=== PATIENT | female | born 1985 | race Caucasian/White ===

== ENCOUNTER 2016-08-27 18:05 | Emergency (ER) | payer OTHER ==
[2016-08-27] MEDS ORDERED: KETOROLAC TROMETHAMINE INJ/PF 30 MG/1 ML SDV IV ONE (19:01)
[2016-08-27] MEDS ORDERED: NORMAL SALINE 1000 ML 1,000 ML IV ONE (19:01)
[2016-08-27] MEDS ORDERED: CEFTRIAXONE 1 GM/D5W RTU 50 ML IV ONE (19:01)
[2016-08-27] MEDS ORDERED: ONDANSETRON HCL INJ/PF 4 MG/2 ML SDV IV ONE (19:01)
--- NOTE | 2016-08-27 19:07 | ER Document Report ---
ED General - General Chief Complaint: Flank Pain Stated Complaint: LEFT FLANK PAIN Time Seen by Provider: 08/27/16 18:53 Mode of Arrival: Ambulatory Information source: Patient Notes: 31-year-old female presents with complaints of left flank pain. Patient denies chills denies any fevers. Patient notes she was seen prior in [place] diagnosed with Ryan was started on Cipro but feels symptoms have not improved at all. TRAVEL OUTSIDE OF THE [place]. IN LAST 30 DAYS: No - HPI Onset: Last week Onset/Duration: Persistent Quality of pain: Achy Severity: Mild Pain Level: 2 Associated symptoms: Nausea, Vomiting Exacerbated by: Denies Relieved by: Denies Similar symptoms previously: Yes Recently seen / treated by doctor: Yes - Related Data Allergies/Adverse Reactions: Sulfa (Sulfonamide Antibiotics) Allergy (Mild, Verified 11/12/14 13:35) Hives Past Medical History - Social History Smoking Status: Never Smoker Cigarette use (# per day): No Chew tobacco use (# tins/day): No Smoking Education Provided: No Family History: Reviewed & Not Pertinent Patient has suicidal ideation: No Patient has homicidal ideation: No Renal/ Medical History: Reports: Hx Kidney Stones. Denies: Hx Peritoneal Dialysis Past Surgical History: Reports: Hx Tonsillectomy - Immunizations Immunizations up to date: Yes Hx Diphtheria, Pertussis, Tetanus Vaccination: No Review of Systems - Review of Systems Notes: REVIEW OF SYSTEMS: CONSTITUTIONAL : Admits to chills EENT: Denies eye, ear, throat, or mouth pain or symptoms. Denies nasal or sinus congestion or discharge. Denies throat, tongue, or mouth swelling or difficulty swallowing. CARDIOVASCULAR: Denies chest pain. Denies palpitations or racing or irregular heart beat. Denies ankle edema. RESPIRATORY: Denies cough, cold, or chest congestion. Denies shortness of breath, difficulty breathing, or wheezing. GASTROINTESTINAL: Left flank pain GENITOURINARY: admits to burning urination MUSCULOSKELETAL: Denies back or neck pain or stiffness. Denies joint pain or swelling. SKIN: Denies rash, lesions or sores. HEMATOLOGIC : Denies easy bruising or bleeding. LYMPHATIC: Denies swollen, enlarged glands. NEUROLOGICAL: Denies confusion or altered mental status. Denies passing out or loss of consciousness. Denies dizziness or lightheadedness. Denies headache. Denies weakness or paralysis or loss of use of either side. Denies problems with gait or speech. Denies sensory loss, numbness, or tingling. Denies seizures. PSYCHIATRIC: Denies anxiety or stress. Denies depression, suicidal ideation, or homicidal ideation. ALL OTHER SYSTEMS REVIEWED AND NEGATIVE. PHYSICAL EXAMINATION: GENERAL: pt in mild distress HEAD: Atraumatic, normocephalic. EYES: Pupils equal round and reactive to light, extraocular movements intact, conjunctiva are normal. ENT: Nares patent, oropharynx clear without exudates. Moist mucous membranes. NECK: Normal range of motion, supple without lymphadenopathy LUNGS: Breath sounds clear to auscultation bilaterally and equal. No wheezes rales or rhonchi. HEART: Regular rate and rhythm without murmurs ABDOMEN: left cva tenderness Female : deferred Musculoskeletal: Normal range of motion, no pitting or edema. No cyanosis. NEUROLOGICAL: Cranial nerves grossly intact. Normal speech, normal gait. Normal sensory, motor exams PSYCH: Normal mood, normal affect. SKIN: Warm, Dry, normal turgor, no rashes or lesions noted. Dictation was performed using [employer] voice recognition software Physical Exam - Vital signs Vitals: Temp Pulse Resp BP Pulse Ox 98.2 F 103 H 22 H 114/62 99 08/27/16 18:13 08/27/16 18:13 08/27/16 18:13 08/27/16 18:13 08/27/16 18:13 Course - Re-evaluation Re-evalutation: 08/27/16 19:06 lab work pending, pt had a ct which was negative, pt notes she had as many wbc as rbc in her urine prior i am attempting to contact her hospital in [place] to see if they cultured the results 08/27/16 20:57 Ct is consistnat with left punctate stone, no other abnormalites noted. pt explained these results. otherwise labs are normal pt is s table for dc After performing a Medical Screening Examination, I estimate there is LOW risk for ACUTE APPENDICITIS, BOWEL OBSTRUCTION, ACUTE CHOLECYSTITIS, PERFORATED DIVERTICULITIS, INCARCERATED HERNIA, PANCREATITIS, PELVIC INFLAMMATORY DISEASE, PERFORATED ULCER, ECTOPIC , or TUBO-OVARIAN ABSCESS, thus I consider the discharge disposition reasonable. Also, there is no evidence or peritonitis , sepsis, or toxicity. I have reevaluated this patient multiple times and no significant life threatening changes are noted. The patient and I have discussed the diagnosis and risks, and we agree with discharging home with close follow-up with the understanding that symptoms and presentations can change. We also discussed returning to the Emergency Department immediately if new or worsening symptoms occur. We have discussed the symptoms which are most concerning (e.g., bloody stool, fever, changing or worsening pain, vomiting) that necessitate immediate return. - Vital Signs Vital signs: Temp Pulse Resp BP Pulse Ox 98.2 F 103 H 22 H 114/62 99 08/27/16 18:13 08/27/16 18:13 08/27/16 18:13 08/27/16 18:13 08/27/16 18:13 - Laboratory Result Diagrams: 08/27/16 19:19 08/27/16 19:19 Laboratory results interpreted by me: 08/27/16 19:19 AST 37 H ALT 70 H - Diagnostic Test Radiology reviewed: Image reviewed, Reports reviewed - report Given the patient left punctate Discharge - Discharge Clinical Impression: Calculus of left kidney, Flank pain Condition: Stable Disposition: HOME, SELF-CARE Instructions: Kidney Stone ([facility]) Prescriptions: Hydrocodone/Acetaminophen [Andrews 5-325 mg Tablet] 1 tab PO Q6 #10 tablet Referrals: NICKIE BRICE MD [ACTIVE STAFF] - Follow up tomorrow
[2016-08-27 19:34] LABS: ABSOLUTE BASOPHILS # (AUTO) 0.1 10^3/uL (0.0-0.2); ABSOLUTE EOSINOPHILS # (AUTO) 0.2 10^3/uL (0.0-0.6); ABSOLUTE LYMPHOCYTES (AUTO) 2.5 10^3/uL (0.5-4.7); ABSOLUTE MONOCYTES (AUTO) 0.8 10^3/uL (0.1-1.4); ABSOLUTE NEUT (AUTO) 4.2 10^3/uL (1.7-8.2); BASOPHILS % (AUTO) 0.9 % (0-2); EOSINOPHILS % (AUTO) 2.5 % (0-6); HEMOGLOBIN 13.9 g/dL (12.0-15.5); HGB HCT DIFFERENCE -0.3; LYMPHOCYTES % (AUTO) 32.2 % (13-45); MEAN CORPUSCULAR HEMOGLOBIN 30.5 pg (27.0-33.4); MEAN CORPUSCULAR HGB CONC 33.1 g/dL (32.0-36.0); MEAN CORPUSCULAR VOLUME 92 fl (80-97); MONOCYTES % (AUTO) 10.5 % (3-13); RED BLOOD COUNT 4.56 10^6/uL (3.72-5.28); RED CELL DISTRIBUTION WIDTH 12.3 % (11.5-14.0); SEGMENTED NEUTROPHILS % (AUTO) 53.9 % (42-78); WHITE BLOOD COUNT 7.8 10^3/uL (4.0-10.5)
[2016-08-27 19:43] LABS: APPEARANCE,URINE CLEAR; BILIRUBIN,URINE NEGATIVE (NEGATIVE); GLUCOSE, URINE NEGATIVE (NEGATIVE); KETONES,URINE NEGATIVE (NEGATIVE); LEUKOCYTE ESTERASE,URINE NEGATIVE (NEGATIVE); NITRITE,URINE NEGATIVE (NEGATIVE); PROTEIN,URINE NEGATIVE (NEGATIVE); URINE SPECIFIC GRAVITY 1.004; UROBILINOGEN,URINE NEGATIVE mg/dL (<2.0)
[2016-08-27 19:51] LABS: ALANINE AMINOTRANSFERASE 70 U/L (9-52); ALBUMIN 4.5 g/dL (3.5-5.0); ALKALINE PHOSPHATASE 52 U/L (38-126); ANION GAP 12 (5-19); ASPARTATE AMINO TRANSFERASE 37 U/L (14-36); BILIRUBIN,DIRECT 0.3 mg/dL (0.0-0.4); BILIRUBIN,TOTAL 0.5 mg/dL (0.2-1.3); BLOOD UREA NITROGEN 13 mg/dL (7-20); CARBON DIOXIDE 26 mmol/L (22-30); CHLORIDE 103 mmol/L (98-107); CREATININE RESULT 0.57 mg/dL (0.52-1.25); GLUCOSE 76 mg/dL (75-110); POTASSIUM 4.6 mmol/L (3.6-5.0); SODIUM 140.5 mmol/L (137-145); TOTAL PROTEIN 7.4 g/dL (6.3-8.2)
--- NOTE | 2016-08-27 20:33 | RADIOLOGY REPORT (SQ) ---
EXAM DESCRIPTION: CT LTD RENAL STONE PROTOCOL ON COMPLETED DATE/TIME: 08/27/2016 8:17 pm REASON FOR STUDY: left flank pain COMPARISON: None. TECHNIQUE: CT scan of the abdomen and pelvis performed without intravenous or oral contrast. Images reviewed with lung, soft tissue, and bone windows. Reconstructed coronal and sagittal MPR images revi ewed. All images stored on PACS. All CT scanners at this facility use dose modulation, iterative reconstruction, and/or weight based d osing when appropriate to reduce radiation dose to as low as reasonably achievable (ALARA). [facility]: Dose Right [facility]: CareDose [facility]: Dose Right [facility]: Teradose 4D [facility]: Smart Missionly RADIATION DOSE: Up-to-date CT equipment and radiation dose reduction techniques were employed. CTDIv ol: 5.5 mGy. DLP: 299 mGy-cm.mGy. LIMITATIONS: None. FINDINGS: LOWER CHEST: No significant findings. No nodules or infiltrates. NON-CONTRASTED LIVER, SPLEEN, ADRENALS: Evaluation limited by lack of IV contrast. No identified sign ificant masses. PANCREAS: No masses. No peripancreatic inflammatory changes. GALLBLADDER: No identified stones by CT criteria. No inflammatory changes to suggest cholecystitis. RIGHT KIDNEY AND URETER: No suspicious masses. Assessment limited by lack of IV contrast. No signif icant calcifications. No hydronephrosis or hydroureter. LEFT KIDNEY AND URETER: No suspicious masses. Assessment limited by lack of IV contrast. Punctate n onobstructing calculus identified in the upper pole. There is a rounded calcification is seen in wit hin the pelvis and appears to represent a phlebolith. No hydronephrosis or hydroureter. AORTA AND RETROPERITONEUM: No aneurysm. No retroperitoneal masses or adenopathy. BOWEL AND PERITONEAL CAVITY: No obvious masses or inflammatory changes. No free fluid. APPENDIX: Normal. PELVIS, BLADDER, AND ABDOMINAL WALL:No abnormal masses. No free fluid. Bladder normal. Pelvic phlebo liths noted bilaterally. BONES: No significant findings. OTHER: No other significant finding. IMPRESSION: Punctate nonobstructing calculus identified in the upper pole the left kidney. No signi ficant hydronephrosis. No other significant abnormality identified on this noncontrast study of the abdomen pelvis. TECHNICAL DOCUMENTATION: JOB ID: [id number] Quality ID # [id number]: Final reports with documentation of one or more dose reduction techniques (e.g., Au tomated exposure control, adjustment of the mA and/or kV according to patient size, use of iterative reconstruction technique) 2010 [employer]- All Rights Reserved
[2016-08-27 21:21] VITALS: BP 103/72
== END 2016-08-27 21:10 | disposition home or self-care (01) ==
LOC: ER 18:05
DX: N20.0 Calculus of kidney (principal); R10.9 Unspecified abdominal pain
CPT/HCPCS: 99284; 96375; 96365; 36415; 87040; 87086; 85025; 81025; 87088; 80053; 81001; 76380; J1885; J2405; J7030; J0696

== ENCOUNTER 2016-09-16 11:16 | Emergency (ER) | payer OTHER ==
[2016-09-16] MEDS ORDERED: LORAZEPAM 1 MG TABLET PO ONE (11:36)
[2016-09-16] MEDS ORDERED: NORMAL SALINE 1000 ML 1,000 ML IV PRN (11:36)
--- NOTE | 2016-09-16 11:39 | ER Document Report ---
ED Medical Screen (RME) - General Chief Complaint: Anxiety Stated Complaint: FAST HEART BEAT Time Seen by Provider: 09/16/16 11:30 Mode of Arrival: Ambulatory Information source: Patient TRAVEL OUTSIDE OF THE [place] IN LAST 30 DAYS: No - HPI Patient complains to provider of: Palpitations Onset: This morning Onset/Duration: Sudden Quality of pain: No pain Associated Symptoms: Shortness of breath Exacerbated by: Denies Relieved by: Denies Notes: 09/16/16 11:38 Patient is a 31-year-old female who presents to the emergency room complaining of palpitations, with sensation of her heart racing, symptoms started earlier this morning, she has a history of anxiety or panic attacks previously but is usually able to calm herself down with breathing exercises and melatonin which did not work today, she reports she is anxious about starting school, is slightly tearful in triage area, however she does report a recent road trip to [place] approximately 2 weeks ago, denies any calf pain, denies any chest pain, does not take oral control pills - Related Data Allergies/Adverse Reactions: Sulfa (Sulfonamide Antibiotics) Allergy (Mild, Verified 09/16/16 11:26) Hives Past Medical History Renal/ Medical History: Reports: Hx Kidney Stones. Denies: Hx Peritoneal Dialysis Past Surgical History: Reports: Hx Tonsillectomy - Immunizations Immunizations up to date: Yes Hx Diphtheria, Pertussis, Tetanus Vaccination: No Physical Exam - Vital signs Vitals: Temp Pulse Resp BP Pulse Ox 97.7 F 111 H 18 116/85 100 09/16/16 11:25 09/16/16 11:25 09/16/16 11:25 09/16/16 11:25 09/16/16 11:25 Course - Vital Signs Vital signs: Temp Pulse Resp BP Pulse Ox 97.7 F 111 H 18 116/85 100 09/16/16 11:25 09/16/16 11:25 09/16/16 11:25 09/16/16 11:25 09/16/16 11:25 Doctor's Discharge - Discharge Instructions: Anxiety ([facility])
[2016-09-16 12:13] LABS: ABSOLUTE BASOPHILS # (AUTO) 0.1 10^3/uL (0.0-0.2); ABSOLUTE EOSINOPHILS # (AUTO) 0.1 10^3/uL (0.0-0.6); ABSOLUTE LYMPHOCYTES (AUTO) 1.8 10^3/uL (0.5-4.7); ABSOLUTE MONOCYTES (AUTO) 0.6 10^3/uL (0.1-1.4); ABSOLUTE NEUT (AUTO) 5.4 10^3/uL (1.7-8.2); BASOPHILS % (AUTO) 0.9 % (0-2); EOSINOPHILS % (AUTO) 1.6 % (0-6); HEMATOCRIT 39.5 % (36.0-47.0); HEMOGLOBIN 13.4 g/dL (12.0-15.5); HGB HCT DIFFERENCE 0.7; LYMPHOCYTES % (AUTO) 22.5 % (13-45); MEAN CORPUSCULAR HEMOGLOBIN 30.9 pg (27.0-33.4); MEAN CORPUSCULAR HGB CONC 33.9 g/dL (32.0-36.0); MEAN CORPUSCULAR VOLUME 91 fl (80-97); MONOCYTES % (AUTO) 7.6 % (3-13); RED BLOOD COUNT 4.34 10^6/uL (3.72-5.28); RED CELL DISTRIBUTION WIDTH 12.7 % (11.5-14.0); SEGMENTED NEUTROPHILS % (AUTO) 67.4 % (42-78)
--- NOTE | 2016-09-16 12:25 | RADIOLOGY REPORT (SQ) ---
EXAM DESCRIPTION: CHEST PA/LAT COMPLETED DATE/TIME: 09/16/2016 12:04 pm REASON FOR STUDY: tachycardia COMPARISON: None. EXAM PARAMETERS: NUMBER OF VIEWS: two views TECHNIQUE: Digital Frontal and Lateral radiographic views of the chest acquired. RADIATION DOSE: NA LIMITATIONS: none FINDINGS: LUNGS AND PLEURA: No opacities, masses or pneumothorax. No pleural effusion. MEDIASTINUM AND HILAR STRUCTURES: No masses or contour abnormalities. HEART AND VASCULAR STRUCTURES: Heart normal size. No evidence for failure. BONES: No acute findings. HARDWARE: None in the chest. OTHER: No other significant finding. IMPRESSION: NO SIGNIFICANT RADIOGRAPHIC FINDING IN THE CHEST. TECHNICAL DOCUMENTATION: JOB ID: [id number] [employer]- All Rights Reserved
[2016-09-16 12:35] LABS: ALANINE AMINOTRANSFERASE 57 U/L (9-52); ALBUMIN 4.5 g/dL (3.5-5.0); ALKALINE PHOSPHATASE 46 U/L (38-126); ANION GAP 11 (5-19); ASPARTATE AMINO TRANSFERASE 29 U/L (14-36); BILIRUBIN,DIRECT 0.2 mg/dL (0.0-0.4); BILIRUBIN,TOTAL 0.4 mg/dL (0.2-1.3); BLOOD UREA NITROGEN 8 mg/dL (7-20); CALCIUM 9.8 mg/dL (8.4-10.2); CARBON DIOXIDE 25 mmol/L (22-30); CHLORIDE 105 mmol/L (98-107); CREATINE KINASE 48 U/L (30-135); CREATININE RESULT 0.54 mg/dL (0.52-1.25); GLUCOSE 86 mg/dL (75-110); POTASSIUM 4.6 mmol/L (3.6-5.0); SODIUM 141.3 mmol/L (137-145); TOTAL PROTEIN 7.2 g/dL (6.3-8.2)
[2016-09-16 12:47] LABS: CREATINE KINASE MB 0.74 ng/mL (<4.55); TROPONIN I < 0.012 ng/mL
--- NOTE | 2016-09-16 15:31 | ER Document Report ---
ED General - General Chief Complaint: Anxiety Stated Complaint: FAST HEART BEAT Time Seen by Provider: 09/16/16 11:30 Mode of Arrival: Ambulatory Information source: Patient Notes: Is a 31-year-old female with a history of anxiety that presents to the emergency room with palpitations, heart racing, feeling anxious. TRAVEL OUTSIDE OF THE [place] IN LAST 30 DAYS: No - HPI Onset: Last week Onset/Duration: Gradual Quality of pain: No pain Severity: None Pain Level: Denies Associated symptoms: Other - Is palpitations. denies: Chest pain, Fever, Shortness of breath Exacerbated by: Denies Relieved by: Denies Similar symptoms previously: Yes Recently seen / treated by doctor: Yes - Related Data Allergies/Adverse Reactions: Sulfa (Sulfonamide Antibiotics) Allergy (Mild, Verified 09/16/16 11:26) Hives Past Medical History - General Information source: Patient - Social History Smoking Status: Never Smoker Cigarette use (# per day): No Chew tobacco use (# tins/day): No Frequency of alcohol use: None Drug Abuse: None Lives with: Family Family History: Reviewed & Not Pertinent Patient has suicidal ideation: No Patient has homicidal ideation: No - Past Medical History Cardiac Medical History: Reports: None Pulmonary Medical History: Reports: None EENT Medical History: Reports: None Neurological Medical History: Reports: None Endocrine Medical History: Reports: None Renal/ Medical History: Reports: Hx Kidney Stones. Denies: Hx Peritoneal Dialysis Malignancy Medical History: Reports: None GI Medical History: Reports: None Musculoskeltal Medical History: Reports None Skin Medical History: Reports None Psychiatric Medical History: Reports: Hx Anxiety Traumatic Medical History: Reports: None Infectious Medical History: Reports: None Past Surgical History: Reports: Hx Tonsillectomy - Immunizations Immunizations up to date: Yes Hx Diphtheria, Pertussis, Tetanus Vaccination: No Review of Systems - Review of Systems Constitutional: denies: Chills, Fever EENT: No symptoms reported Cardiovascular: Palpitations Respiratory: No symptoms reported Gastrointestinal: No symptoms reported Genitourinary: No symptoms reported Female Genitourinary: No symptoms reported Musculoskeletal: No symptoms reported Skin: No symptoms reported Hematologic/Lymphatic: No symptoms reported Neurological/Psychological: No symptoms reported Physical Exam - Vital signs Vitals: Temp Pulse Resp BP Pulse Ox 97.7 F 111 H 18 116/85 100 09/16/16 11:25 09/16/16 11:25 09/16/16 11:25 09/16/16 11:25 09/16/16 11:25 Notes: Physical exam: GENERAL: 31-year-old female, alert and oriented 3, no acute distress HEAD: Atraumatic, normocephalic. EYES: Pupils equal round and reactive to light, extraocular movements intact, sclera anicteric, conjunctiva are normal. ENT: TMs normal, nares patent, oropharynx clear without exudates. Moist mucous membranes. NECK: Normal range of motion, supple without lymphadenopathy or JVD. LUNGS: Breath sounds clear to auscultation bilaterally and equal. No wheezes rales or rhonchi. HEART: Regular rate and rhythm without murmurs, rubs or gallops. ABDOMEN: Soft, normoactive bowel sounds. No tenderness to palpation. No guarding, no rebound. No masses appreciated. EXTREMITIES: Normal range of motion, no pitting or edema. No clubbing or cyanosis. NEUROLOGICAL: Cranial nerves II through XII grossly intact. Normal speech, normal gait. PSYCH: Normal mood, normal affect. SKIN: Warm, Dry, normal turgor, no rashes or lesions noted. Course - Re-evaluation Re-evalutation: 09/16/16 19:30 Observed on the monitor for several hours. She did fine and states she is feeling better. And states she was feeling better. The d-dimer is negative and her TSH is good. The rest of her electrolytes is good. - Vital Signs Vital signs: Temp Pulse Resp BP Pulse Ox 97.8 F 111 H 19 109/90 H 100 09/16/16 15:48 09/16/16 11:25 09/16/16 15:48 09/16/16 15:48 09/16/16 15:57 - Laboratory Result Diagrams: 09/16/16 11:50 09/16/16 11:50 Laboratory results interpreted by me: 09/16/16 11:50 ALT 57 H - EKG Interpretation by Me Rate: Tachycardia Rhythm: NSR - EKG shows sinus tachycardia with a ventricular rate of 105, no acute ST-T wave changes Discharge - Discharge Clinical Impression: Anxiety Condition: Stable Disposition: HOME, SELF-CARE Instructions: Anxiety ([facility]) Additional Instructions: As we discussed, your labs look good today. I would like you to follow-up with your primary care doctor Recommendations: In the meantime, take Ativan only if necessary feeling anxious. Return to the emergency room for worsening anxiety, shortness of breath, palpitations or any concerns or getting worse. Prescriptions: Lorazepam [Ativan 1 mg Tablet] 1 tab PO TID #20 tablet
[2016-09-16 15:57] VITALS: BP 109/90
--- NOTE | 2016-09-17 03:38 | EKG REPORT ---
SEVERITY:- OTHERWISE NORMAL ECG - SINUS TACHYCARDIA : Confirmed by: Kimberly Song MD 17-Sep-2016 03:36:41
== END 2016-09-16 15:58 | disposition home or self-care (01) ==
LOC: ER 11:16
DX: F41.9 Anxiety disorder, unspecified (principal); R00.2 Palpitations; R00.0 Tachycardia, unspecified; Z88.2 Allergy status to sulfonamides
CPT/HCPCS: 93005; 99284; 96360; 36415; 82553; 82550; 84443; 85025; 80053; 84484; 85379; 71020; 93010; J7030

== ENCOUNTER 2017-01-22 09:43 | Emergency (ER) | payer OTHER ==
[2017-01-22] MEDS ORDERED: NORMAL SALINE 1000 ML 1,000 ML IV ONE (10:59)
--- NOTE | 2017-01-22 11:01 | ER Document Report ---
HPI - HPI Patient complains to provider of: Palpitations and anxiety Onset: This morning Onset/Duration: Sudden Quality of pain: No pain Pain Level: Denies Context: Patient states that she felt her heart racing around 630 today. Patient states that when her heart races it makes her anxious which worsens her heart racing. 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 Patient denies any suicidal or homicidal ideation. Patient denies any history of PE or DVT. Patient denies any chest pain. Patient states she has had episodes of palpitations and heart racing in the past and did wear a Holter monitor and had followed up with cardiology. Patient states she was only diagnosed with anxiety and panic attacks. Patient states that she does take diazepam and Prozac for her symptoms but ran out of her diazepam. Associated Symptoms: Other - Palpitations, anxiety. denies: Chest pain, Nonproductive cough, Productive cough Exacerbated by: Denies Relieved by: Denies Similar symptoms previously: Yes Recently seen / treated by doctor: No - ROS ROS below otherwise negative: Yes Systems Reviewed and Negative: Yes All other systems reviewed and negative - CONSTITUTIONAL Constitutional: DENIES: Fever Notes: Anxiety, palpitations - NEURO Neurology: DENIES: Headache, Weakness - CARDIOVASCULAR Cardiovascular: DENIES: Chest pain - RESPIRATORY Respiratory: DENIES: Coughing - GASTROINTESTINAL Gastrointestinal: DENIES: Nausea, Patient vomiting - MUSCULOSKELETAL Musculoskeletal: DENIES: Extremity pain - DERM Skin Color: Normal Skin Problems: None Past Medical History - General Information source: Patient - Social History Smoking Status: Never Smoker Frequency of alcohol use: None Drug Abuse: None Occupation: Tax preparation Lives with: Family Family History: Reviewed & Not Pertinent - Past Medical History Cardiac Medical History: Reports: Other - Palpitations Renal/ Medical History: Reports: Hx Kidney Stones. Denies: Hx Peritoneal Dialysis Psychiatric Medical History: Reports: Hx Anxiety Past Surgical History: Reports: Hx Tonsillectomy - Immunizations Immunizations up to date: Yes Hx Diphtheria, Pertussis, Tetanus Vaccination: No Vertical Provider Document - CONSTITUTIONAL Agree With Documented VS: Yes Exam Limitations: No Limitations General Appearance: WD/WN, No Apparent Distress - INFECTION CONTROL TRAVEL OUTSIDE OF THE [place] IN LAST 30 DAYS: No - HEENT HEENT: Atraumatic, Normal ENT Exam, Normocephalic - NECK Neck: Normal Inspection, Supple, Thyroid Normal. negative: Lymphadenopathy-Left , Lymphadenopathy-Right - RESPIRATORY Respiratory: Breath Sounds Normal, No Respiratory Distress, Chest Non-Tender O2 Sat by Pulse Oximetry: 100 - CARDIOVASCULAR Cardiovascular: Regular Rhythm, No Murmur, Tachycardia - GI/ABDOMEN Gastrointestinal: Abdomen Soft - BACK Back: Normal Inspection - MUSCULOSKELETAL/EXTREMETIES Musculoskeletal/Extremeties: MAEW, FROM, Non-Tender - NEURO Level of Consciousness: Awake, Alert, Appropriate Motor/Sensory: No Motor Deficit - DERM Integumentary: Warm, Dry, No Rash Course - Re-evaluation Re-evalutation: 01/22/17 Review of prescription profile demonstrates that patient received a 30 day supply of diazepam on 12/25/2016. Patient had been taking more than 1 tablet a day as was prescribed. Patient advised that she will need to seek a refill of this medication from her primary care provider. Patient took her last dose of diazepam last night. No concern for withdrawal at this time. Patient advised that she should only take the medication as it was written. Patient states she did not realize that it was only written for 1 time a day as she was verbally told to take it as needed. Tachycardia resolved. Patient visibly more calm. Patient denies any chest pain , dyspnea or feelings of palpitations. - Vital Signs Vital signs: Temp Pulse Resp BP Pulse Ox 98.0 F 136 H 18 123/70 100 01/22/17 10:03 01/22/17 10:03 01/22/17 10:03 01/22/17 10:03 01/22/17 10:03 - Laboratory Result Diagrams: 01/22/17 12:25 01/22/17 12:25 Laboratory results interpreted by me: 01/22/17 20:40 Labs- Entire Visit 01/22/17 01/22/17 01/22/17 11:35 11:35 12:25 WBC 8.7 RBC 4.50 Hgb 13.9 Hct 40.6 MCV 90 MCH 31.0 MCHC 34.3 RDW 13.2 Plt Count 223 Seg Neutrophils % 59.0 Lymphocytes % 31.1 Monocytes % 7.8 Eosinophils % 1.4 Basophils % 0.7 Absolute Neutrophils 5.1 Absolute Lymphocytes 2.7 Absolute Monocytes 0.7 Absolute Eosinophils 0.1 Absolute Basophils 0.1 D-Dimer Sodium Potassium Chloride Carbon Dioxide Anion Gap BUN Creatinine Est GFR ( Amer) Est GFR (Non-Af Amer) Glucose Calcium Creatine Kinase CK-MB (CK-2) Troponin I TSH Urine Color YELLOW Urine Appearance CLEAR Urine pH 8.0 Ur Specific Barton 1.017 Urine Protein NEGATIVE Urine Glucose (UA) NEGATIVE Urine Ketones NEGATIVE Urine Blood NEGATIVE Urine Nitrite NEGATIVE Urine Bilirubin NEGATIVE Urine Urobilinogen NEGATIVE Ur Leukocyte Esterase NEGATIVE Urine WBC 1-5 Ur Squamous Epith Cells MANY Urine Bacteria TRACE Urine Ascorbic Acid NEGATIVE Urine Opiates Screen NEGATIVE Urine Methadone Screen NEGATIVE Ur Barbiturates Screen NEGATIVE Ur Phencyclidine Scrn NEGATIVE Ur Amphetamines Screen NEGATIVE U Benzodiazepines Scrn UNCONFIRMED POSITIVE Urine Cocaine Screen NEGATIVE U Marijuana (THC) Screen NEGATIVE 01/22/17 01/22/17 01/22/17 12:25 12:25 12:25 WBC RBC Hgb Hct MCV MCH MCHC RDW Plt Count Seg Neutrophils % Lymphocytes % Monocytes % Eosinophils % Basophils % Absolute Neutrophils Absolute Lymphocytes Absolute Monocytes Absolute Eosinophils Absolute Basophils D-Dimer < 0.27 Sodium 141.8 Potassium 5.1 H Chloride 101 Carbon Dioxide 27 Anion Gap 14 BUN 13 Creatinine 0.50 L Est GFR ( Amer) > 60 Est GFR (Non-Af Amer) > 60 Glucose 78 Calcium 10.4 H Creatine Kinase 73 CK-MB (CK-2) 0.97 Troponin I < 0.012 TSH Urine Color Urine Appearance Urine pH Ur Specific Barton Urine Protein Urine Glucose (UA) Urine Ketones Urine Blood Urine Nitrite Urine Bilirubin Urine Urobilinogen Ur Leukocyte Esterase Urine WBC Ur Squamous Epith Cells Urine Bacteria Urine Ascorbic Acid Urine Opiates Screen Urine Methadone Screen Ur Barbiturates Screen Ur Phencyclidine Scrn Ur Amphetamines Screen U Benzodiazepines Scrn Urine Cocaine Screen U Marijuana (THC) Screen 01/22/17 12:25 WBC RBC Hgb Hct MCV MCH MCHC RDW Plt Count Seg Neutrophils % Lymphocytes % Monocytes % Eosinophils % Basophils % Absolute Neutrophils Absolute Lymphocytes Absolute Monocytes Absolute Eosinophils Absolute Basophils D-Dimer Sodium Potassium Chloride Carbon Dioxide Anion Gap BUN Creatinine Est GFR ( Amer) Est GFR (Non-Af Amer) Glucose Calcium Creatine Kinase CK-MB (CK-2) Troponin I TSH 1.87 Urine Color Urine Appearance Urine pH Ur Specific Barton Urine Protein Urine Glucose (UA) Urine Ketones Urine Blood Urine Nitrite Urine Bilirubin Urine Urobilinogen Ur Leukocyte Esterase Urine WBC Ur Squamous Epith Cells Urine Bacteria Urine Ascorbic Acid Urine Opiates Screen Urine Methadone Screen Ur Barbiturates Screen Ur Phencyclidine Scrn Ur Amphetamines Screen U Benzodiazepines Scrn Urine Cocaine Screen U Marijuana (THC) Screen Discharge - Discharge Clinical Impression: Palpitations, Hx of anxiety disorder Condition: Stable Disposition: HOME, SELF-CARE Instructions: Anxiety ([facility]), Palpitations (Irregular or Rapid Heartrate) ([facility]) Additional Instructions: Return immediately for any new or worsening symptoms Followup with your primary care provider, call tomorrow to make a followup appointment Follow-up with your primary care provider for recheck. Your potassium level was mildly elevated today. They can retry your labs to recheck this test. Follow-up with a mallet and die cutter for further evaluation, call today for an appointment Prescriptions: Hydroxyzine HCl [Atarax 25 mg Tablet] 2 tab PO TID PRN #20 tablet PRN Reason: Referrals: MINNA SIEGEL MD [NO LOCAL MD] - Follow up as needed CHANTEL BLOOM MD [ACTIVE STAFF] - Follow up in 3-5 days
--- NOTE | 2017-01-22 11:27 | RADIOLOGY REPORT (SQ) ---
EXAM DESCRIPTION: CHEST PA/LAT COMPLETED DATE/TIME: 01/22/2017 11:17 am REASON FOR STUDY: palpitations COMPARISON: 09/16/2016. EXAM PARAMETERS: NUMBER OF VIEWS: two views TECHNIQUE: Digital Frontal and Lateral radiographic views of the chest acquired. RADIATION DOSE: NA LIMITATIONS: none FINDINGS: LUNGS AND PLEURA: No opacities, masses or pneumothorax. No pleural effusion. MEDIASTINUM AND HILAR STRUCTURES: No masses or contour abnormalities. HEART AND VASCULAR STRUCTURES: Heart normal size. No evidence for failure. BONES: No acute findings. HARDWARE: None in the chest. OTHER: No other significant finding. IMPRESSION: NO SIGNIFICANT RADIOGRAPHIC FINDING IN THE CHEST. TECHNICAL DOCUMENTATION: JOB ID: [id number] [employer]- All Rights Reserved
--- NOTE | 2017-01-22 11:55 | EKG REPORT ---
SEVERITY:- ABNORMAL ECG - SINUS RHYTHM ABNORMAL Q SUGGESTS ANTERIOR INFARCT : Confirmed by: Michael Grace 22-Jan-2017 11:53:38
[2017-01-22 12:20] LABS: APPEARANCE,URINE CLEAR; BILIRUBIN,URINE NEGATIVE (NEGATIVE); GLUCOSE, URINE NEGATIVE (NEGATIVE); KETONES,URINE NEGATIVE (NEGATIVE); LEUKOCYTE ESTERASE,URINE NEGATIVE (NEGATIVE); NITRITE,URINE NEGATIVE (NEGATIVE); PROTEIN,URINE NEGATIVE (NEGATIVE); URINE SPECIFIC GRAVITY 1.017; UROBILINOGEN,URINE NEGATIVE mg/dL (<2.0)
[2017-01-22 12:34] LABS: URINE BARBITURATES SCREEN NEGATIVE; URINE METHADONE SCREEN NEGATIVE; URINE OPIATES LOW NEGATIVE; URINE PHENCYCLIDINE SCREEN NEGATIVE
[2017-01-22 12:35] LABS: BACTERIA,URINE TRACE /HPF
[2017-01-22 12:53] LABS: ABSOLUTE BASOPHILS # (AUTO) 0.1 10^3/uL (0.0-0.2); ABSOLUTE EOSINOPHILS # (AUTO) 0.1 10^3/uL (0.0-0.6); ABSOLUTE LYMPHOCYTES (AUTO) 2.7 10^3/uL (0.5-4.7); ABSOLUTE MONOCYTES (AUTO) 0.7 10^3/uL (0.1-1.4); ABSOLUTE NEUT (AUTO) 5.1 10^3/uL (1.7-8.2); BASOPHILS % (AUTO) 0.7 % (0-2); EOSINOPHILS % (AUTO) 1.4 % (0-6); HEMATOCRIT 40.6 % (36.0-47.0); HEMOGLOBIN 13.9 g/dL (12.0-15.5); HGB HCT DIFFERENCE 1.1; LYMPHOCYTES % (AUTO) 31.1 % (13-45); MEAN CORPUSCULAR HGB CONC 34.3 g/dL (32.0-36.0); MEAN CORPUSCULAR VOLUME 90 fl (80-97); MONOCYTES % (AUTO) 7.8 % (3-13); RED CELL DISTRIBUTION WIDTH 13.2 % (11.5-14.0); WHITE BLOOD COUNT 8.7 10^3/uL (4.0-10.5)
[2017-01-22 13:14] LABS: ANION GAP 14 (5-19); BLOOD UREA NITROGEN 13 mg/dL (7-20); CALCIUM 10.4 mg/dL (8.4-10.2); CARBON DIOXIDE 27 mmol/L (22-30); CHLORIDE 101 mmol/L (98-107); CREATINE KINASE 73 U/L (30-135); GLUCOSE 78 mg/dL (75-110); POTASSIUM 5.1 mmol/L (3.6-5.0); SODIUM 141.8 mmol/L (137-145)
[2017-01-22 13:26] LABS: CREATINE KINASE MB 0.97 ng/mL (<4.55)
[2017-01-22 13:28] LABS: TROPONIN I < 0.012 ng/mL
[2017-01-22 14:03] VITALS: BP 115/76
== END 2017-01-22 14:28 | disposition home or self-care (01) ==
LOC: ER 09:43
DX: F41.0 Panic disorder [episodic paroxysmal anxiety] (principal); Z91.14 Patient's other noncompliance with medication regimen; R00.2 Palpitations
CPT/HCPCS: 36415; 71020; 80048; 80307; 81001; 82550; 82553; 84443; 84484; 85025; 85379; 93005; 93010; 99284